=== PATIENT | male | born 1965 | race Hispanic/Latino ===

== ENCOUNTER 2025-05-04 04:52 | Emergency (ER) | payer BC, OTHER ==
[~2025-05-04] VITALS: Ht 172.7 cm; Wt 104.3 kg
--- NOTE | 2025-05-04 05:11 | NUR ---
REPORTS HE WAS UNABLE TO SLEEP TONIGHT, FELT PALPITATIONS. FEELS IF HE IS DEHYDRATED DUE TO WORKING IN A [employer]OT [employer] ALL WEEK
[2025-05-04 05:15] LABS: IMMATURE GRANULOCYTE ABSOLUTE 0.07 K/uL (0-1); NUCLEATED RED BLOOD CELLS 0.0 % (0.0-0.19); PLATELET COUNT (AUTO) 284 K/uL (130-400); RED BLOOD CELL COUNT(AUTO) 5.56 MIL/uL (4.50-6.20); RED CELL DISTRIBUTION WIDTH 14.4 % (11.0-15.5); WHITE BLOOD COUNT (AUTO) 15.6 K/uL (4.8-10.8)
--- NOTE | 2025-05-04 05:21 | ERN ---
General Chief Complaint: Chest Pain Stated Complaint: CHEST TIGHTNESS Time Seen by MD: 05:00 Source: patient History of Present Illness Initial Comments 59-year-old healthy male comes in with chest tightness wondering if he is dehydrated or having heat stroke. 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 Despite drinking lots of fluid he feels dehydr ated. Allergies: Coded Allergies: No Allergy Information Available (Verified Allergy, Unknown, 03/21/21) Home Meds No Active Prescriptions or Reported Meds Past Medical History Past Medical History: Other Medical History Other: PROSTATE CA , COVID Past Surgical History: Other Surgical History Other: NECK FUSION , BILATERAL KNEE, RT SHOULDER Family History Family History: HTN Social History Social History: Negative, Lives with family Constitutional: (-) chills, (-) diaphoresis, (-) fever, (-) malaise, (-) weakness, (-) other documentation EENTM: (-) eye pain, (-) blurred vision, (-) tearing, (-) double vision, (-) ear pain, (-) ear discharge, (-) nose pain, (-) nose congestion, (-) throat pain, (-) Throat swelling, (-) mouth pain, (-) tooth pain, (-) mouth swelling, (-) other documentation Respiratory: (-) cough, (-) orthopnea, (-) short of breath, (-) stridor, (-) wheezing, (-) other documentation Cardiovascular: (-) chest pain, (-) edema, (-) palpitations, (-) syncope, (-) dyspnea on exertion, (-) other documentation Gastrointestinal/Abdominal: (+) nausea Genitourinary: (-) penile discharge, (-) dysuria, (-) frequency, (-) hematuria, (-) pain, (-) other documentation Musculoskeletal: (-) Neck pain, (-) back pain, (-) Flank Pain, (-) joint pain, (-) joint swelling, (-) muscle pain, (-) muscle stiffness, (-) gout, (-) other documentation Physical Exam General Appearance: (+) no apparent distress Orientation: (+) alert, (+) oriented x 3 Head/Face Trauma: No Eye: bilateral eye normal inspection, bilateral eye PERRL, bilateral eye EOMI Ear, Nose, Throat: (+) hearing grossly normal, (+) normal ENT inspection Neck: (+) normal inspection, (+) supple Respiratory: (+) chest non-tender, (+) lungs clear, (+) well ventilated Heart: (+) regular, (+) no gallop Vascular: (+) no edema, (+) normal peripheral pulse Gastrointestinal: (+) soft, (+) non-tender, (+) no organomegaly, (+) bowel sound present Results Laboratory and Microbiology Lab and Micro Result Laboratory Tests Test 05/04/25 05:00 05/04/25 07:24 White Blood Count 15.6 K/uL (4.8-10.8) H Red Blood Count 5.56 MIL/uL (4.50-6.20) Hemoglobin 15.5 g/dL (14.0-18.0) Hematocrit 46.5 % (42-54) Mean Corpuscular Volume 83.6 fL (79-99) Mean Corpuscular Hemoglobin 27.9 pg (27.0-33.0) Mean Corpuscular Hemoglobin Concent 33.3 g/dL (32.0-36.0) Red Cell Distribution Width 14.4 % (11.0-15.5) Platelet Count 284 K/uL (130-400) Mean Platelet Volume 10.3 fL (7.5-10.5) Immature Granulocyte % (Auto) 0.4 % (0-1) Neutrophils (%) (Auto) 89.5 % (40.0-77.0) H Lymphocytes (%) (Auto) 4.4 % (21.0-51.0) L Monocytes (%) (Auto) 4.7 % (3.0-13.0) Eosinophils (%) (Auto) 0.8 % (0.0-8.0) Basophils (%) (Auto) 0.2 % (0.0-5.0) Neutrophils # (Auto) 13.9 K/uL (1.8-7.7) H Lymphocytes # (Auto) 0.7 K/uL (1.0-4.8) L Monocytes # (Auto) 0.7 K/uL (0.1-1.0) Eosinophils # (Auto) 0.13 K/uL (0.00-0.70) Basophils # (Auto) 0.03 K/uL (0.00-0.20) Absolute Immature Granulocyte (auto 0.07 K/uL (0-1) Nucleated Red Blood Cells 0.0 % (0.0-0.19) White Cell Morphology Comment See comments Sodium Level 137 mmol/L (136-145) Potassium Level 4.0 mmol/L (3.5-5.1) Chloride Level 101 mmol/L (101-111) Carbon Dioxide Level 28 mmol/L (21-32) Blood Urea Nitrogen 21 mg/dL (7-18) H Creatinine 0.8 mg/dL (0.5-1.3) Glomerular Filtration Rate Calc 101 mL/min (>90) Random Glucose 136 mg/dL (70-105) H Total Calcium 9.5 mg/dL (8.5-10.1) Total Creatine Kinase 92 U/L (21-232) Troponin I High Sensitivity 6 ng/L (4-75) Urine Color LIGHT-YELLOW (YELLOW) Urine Appearance CLEAR (CLEAR) Urine pH 5.5 (5.0-8.0) Urine Specific Topping 1.025 (1.001-1.031) Urine Protein NEGATIVE mg/dL (NEGATIVE) Urine Glucose (UA) NEGATIVE mg/dL (NEGATIVE) Urine Ketones NEGATIVE mg/dL (NEGATIVE) Urine Occult Blood NEGATIVE (NEGATIVE) Urine Nitrate NEGATIVE (NEGATIVE) Urine Bilirubin NEGATIVE mg/dL (NEGATIVE) Urine Urobilinogen 0.2 mg/dL (0.2-1.0) Urine Leukocyte Esterase NEGATIVE Eliz/uL Labs Reviewed?: Yes EKG/XRAY/US/CT/MRI EKG Comment 05/04/2025 time 5:03 a.m. Ventricular rate 91 Sinus rhythm ID [id number] wave elevation or depression MDM MDM: Differential diagnosis: Acute OK, CHF, dehydration, anxiety Rationale: Tests considered and ordered secondary to shared decision making include: Previous outside records reviewed: Old ER visits. Risk of complication and/or morbidity or mortality of patient management: None Medications-Per medication reconciliation Need for hospitalization: Patient does meet criteria for hospitalization. Need for emergency major/minor surgery: No Patient is a 59-year-old male coming in complaining of generalized body weakness and this comfort. Laboratory work within normal limits patient was hydrated with IV fluids states he feels much better will be discharged in stable condition. ED Course Orders Procedure Category Date Status Time Vital Signs Per CPOE 05/04/25 Transmitted Routine 04:54 Chest 1vw RAD 05/04/25 Taken 04:54 12 Lead Ekg Tracing- EKG 05/04/25 Complete Technical 04:54 Oxygen By Nc/Pulse Ox CPOE 05/04/25 Transmitted 04:54 Maintain Iv CPOE 05/04/25 Transmitted 04:54 Iv Insertion CPOE 05/04/25 Transmitted 04:54 Cardiac Monitoring CPOE 05/04/25 Transmitted 04:54 Pulse Oximetry With CPOE 05/04/25 Transmitted Vs And Prn 04:54 Cbc With Differential LAB 05/04/25 Complete 04:54 Activity: Br W/Brp CPOE 05/04/25 Transmitted With Assist 04:54 Creatine Kinase, Total LAB 05/04/25 Complete 04:54 Troponin I High LAB 05/04/25 Complete Sensitivity 04:54 Urinalysis Profile LAB 05/04/25 Complete 04:54 Basic Metabolic Panel LAB 05/04/25 Complete 04:54 Lactated Ringers PHA 05/04/25 Complete 1000ml (Lactated 05:17 Lactated Ringers PHA 05/04/25 Complete 1000ml (Lactated 05:47 Current Medications Medications (Trade) Dose Ordered Sig/Eulogio Route PRN Reason Start Time Stop Time Status Last Admin Dose Admin Lactated Ringer's (Lactated Ringers 1000ml) 1,000 ml BOLUS STAT IV 05/04/25 05:17 05/04/25 05:35 DC 05/04/25 05:43 Lactated Ringer's (Lactated Ringers 1000ml) 1,000 ml BOLUS STAT IV 05/04/25 05:47 05/04/25 05:49 DC 05/04/25 06:05 Vital Signs Date Time Temp Pulse Resp B/P (MAP) Pulse Ox O2 Delivery O2 Flow Rate FiO2 05/04/25 06:19 99.0 90 18 136/72 95 Room Air* 0 21 05/04/25 05:05 90 18 113/50 96 Room Air* 0 21 05/04/25 04:53 98.8 103 20 144/83 99 Room Air DX & DISP Disposition: Discharge Departure Impression: Primary Impression: Heat exhaustion Condition: Stable Scripts No Active Prescriptions or Reported Meds Additional Instructions: FOLLOW-UP WITH PRIMARY CARE PROVIDER IN 1 TO 2 DAYS. TAKE MEDICATIONS DIRECTED HERE IN THE EMERGENCY ROOM. OKAY TO CONTINUE HOME MEDICATIONS UNLESS OTHERWISE DISCUSSED DURING YOUR VISIT IN THE EMERGENCY ROOM TODAY. RETURN TO YOUR NEAREST EMERGENCY ROOM IF SYMPTOMS WORSEN OR IF THERE IS NO IMPROVEMENT. CALL 911 IF YOU NEED IMMEDIATE ASSISTANCE. TAKE TYLENOL [id number] NEEDED AND IF NO CONTRAINDICATIONS ARE PRESENT. INCREASE ORAL HYDRATION. A WOUND CULTURE OR URINE CULTURE WAS ORDERED HERE IN THE EMERGENCY ROOM DEPARTMENT PLEASE FOLLOW-UP WITH PRIMARY CARE PROVIDER AND ADVISE THEM TO GET REPORTS FROM OUR FACILITY. IF YOU HAD ANY ARA WRAP/SPLINTS THAT WERE APPLIED HERE, PLEASE DO NOT REMOVE THEM UNTIL YOU SEE YOUR PRIMARY CARE OR SPECIALTY. Referrals: Referrals: SELF,REFERRAL (PCP) NNAMDI WATKINS MD Time of Disposition: 08:07 NERY OBREGON MD May 04, 2025 05:21 GUILLERMO MILLS MD May 04, 2025 08:08
[2025-05-04] MEDS: LACTATED RINGERS 1000ML IV STA ×2 (05:43→06:05)
[2025-05-04 05:44] LABS: CREATINE KINASE, TOTAL 92.0 U/L (21-232); CREATININE 0.8 mg/dL (0.5-1.3); GLOMERULAR FILTR. RATE CALC 101.0 mL/min (>90); GLUCOSE,RANDOM 136.0 mg/dL (70-105); SODIUM SERUM 137.0 mmol/L (136-145); UREA NITROGEN, BLOOD 21.0 mg/dL (7-18)
[2025-05-04 06:19] VITALS: BP 136/72; PULSE 90; RESP 18; TEMP 98.9; O2SAT 95
--- NOTE | 2025-05-04 06:32 | EKG ---
[facility] [place] Test Date: 2025-05-04 Test Time: 05:03:06 Pat Name: KARO MANZANO Department: ED Room: Gender: M [employer]: [id number] : 1965 Requested By: NERY OBREGON Order Number: [id number] Reading MD: Tanisha Dillon Measurements Intervals [place] Rate: 91 P: 72 MT: 156 QRS: 52 QRSD: 91 T: 34 QT: 348 QTc: 428 Interpretive Statements Sinus rhythm Compared to ECG 03/21/2021 11:48:08 Sinus tachycardia no longer present T-wave abnormality no longer present Electronically Signed On 05-04-2025 14:34:19 CDT by Tanisha Dillon Please click the below link to view image of tracing.
[2025-05-04 07:34] LABS: ADD UA MICROSCOPIC NO; APPEARANCE,URINE CLEAR (CLEAR); GLUCOSE, URINE (UA) NEGATIVE (NEGATIVE); LEUKOCYTE ESTERASE ,URINE NEGATIVE Leu/uL (NEGATIVE); NITRATE,URINE NEGATIVE (NEGATIVE); OCCULT BLOOD,URINE NEGATIVE (NEGATIVE)
--- NOTE | 2025-05-04 08:19 | HMCIMG ---
EXAM: XR CHEST SINGLE VIEW. HISTORY: Chest pain. COMPARISON: None. TECHNIQUE: Single frontal view chest radiograph. FINDINGS: Lungs, heart and mediastinum demonstrate no significant findings. IMPRESSION: NO ACUTE CHEST DISEASE. /[place]
== END 2025-05-04 08:45 | disposition home or self-care (01) ==
LOC: EDH 04:52
DX: T67.5XXA Heat exhaustion, unspecified, initial encounter (principal); Z86.16 Personal history of COVID-19; Z98.1 Arthrodesis status; X30.XXXA Exposure to excessive natural heat, initial encounter; Y93.89 Activity, other specified; Y92.89 Other specified places as the place of occurrence of the external cause; Y99.8 Other external cause status
CPT/HCPCS: 99285; 71045; 82550; 84484; 80048; 85025; 81003; 36415; 93005; J7120 ×2